=== PATIENT | female | born 1960 | race Caucasian/White ===

== ENCOUNTER → 2018-12-14 | Outpatient (CLI) | payer OTHER | LOC: MAMMO 09:39 | PROVIDERS: ATTEND Obstetrics & Gynecology | DX: Z12.31 Encounter for screening mammogram for malignant neoplasm of breast (principal) | CPT/HCPCS: 77067 ==

== ENCOUNTER → 2019-01-01 | Outpatient (CLI) | payer OTHER ==
--- NOTE | 2019-01-02 08:49 | Diagnostic Imaging Report ---
#[id number] - MGDXLT #UNILATERAL LEFT DIGITAL DIAGNOSTIC MAMMOGRAM WITH SPOT COMPRESSION: 01/01/2019 Comparison is made to exams dated: 12/14/2018 mammogram and 08/09/2013 mammogram - [facility]. Current study contains 3 films. The tissue of the left breast is heterogeneously dense. This may lower the sensitivity of mammography. No definite mass is seen in the region of abnormality involving the outer aspect of the left breast. Since this was highlighted by CAD analysis a focused ultrasound will be performed. IMPRESSION: INCOMPLETE: NEEDS ADDITIONAL IMAGING EVALUATION Focused ultrasound recommended and will follow this exam. Jose Eduardo Harper Jr., D.O. cw/:01/01/2019 15:26:14 Supervisor Front: Amanda ALLEN)(M), [facility] letter sent: Additional Imaging Needed Mammogram BI-RADS: 0 Indeterminate
--- NOTE | 2019-01-02 08:49 | Diagnostic Imaging Report ---
#[id number] - USBRELIMLT ULTRASOUND OF THE LEFT BREAST : 01/01/2019 Comparison is made to exams dated: 01/01/2019 mammogram and 12/14/2018 mammogram - [facility]. Color flow and real-time ultrasound were performed on the outer aspect of the left breast. -At the 3 o'clock position 3 cm from the nipple there is a benign appearing cyst measuring 4 x 1 x 4 mm. IMPRESSION: BENIGN There is no sonographic evidence of malignancy. A 1 year screening mammogram is recommended. Jose Eduardo Harper Jr., D.O. cw/:01/01/2019 15:22:25 Java Software Engineer: Randi Cheng RDIL, [facility] letter sent: Normal Exam Ultrasound BI-RADS: 2 Benign
== END ==
LOC: MAMMO 13:03
PROVIDERS: ATTEND Obstetrics & Gynecology
DX: N63.20 Unspecified lump in the left breast, unspecified quadrant (principal)